=== PATIENT | female | born 1945 | race Hispanic/Latino ===

== ENCOUNTER 2017-08-18 06:00 | Day surgery (SDC) | payer OTHER ==
[~2017-08-18] VITALS: Ht 157.5 cm; Wt 55.5 kg
[~2017-08-18 06:00] MED LIST: ASPI-1012 PO; LISI-613 PO; SODIUM CHLORIDE 0.9% 1000ML 1,000 ML IV ONE
[2017-08-18 06:50] VITALS: BP 140/67
[2017-08-18] MEDS ORDERED: LIDOCAINE HCL 1% 20 ML VIAL ONE (07:32)
[2017-08-18] MEDS ORDERED: PROPOFOL 1000 MG/100 ML 100 ML IV ONE (07:33)
[2017-08-18 07:55] VITALS: BP 85/35
== END 2017-08-18 08:25 | disposition home or self-care (01) ==
LOC: DAH 06:00 → ENDO 06:00
PROVIDERS: ATTEND Internal Medicine Gastroenterology
DX: K56.699 Other intestinal obstruction unspecified as to partial versus complete obstruction (principal); I10 Essential (primary) hypertension; E78.5 Hyperlipidemia, unspecified; I25.10 Atherosclerotic heart disease of native coronary artery without angina pectoris; D64.9 Anemia, unspecified; Z86.73 Personal history of transient ischemic attack (TIA), and cerebral infarction without residual deficits; Z82.49 Family history of ischemic heart disease and other diseases of the circulatory system; Z88.8 Allergy status to other drugs, medicaments and biological substances; Z88.0 Allergy status to penicillin; Z79.899 Other long term (current) drug therapy; Z79.82 Long term (current) use of aspirin
CPT/HCPCS: 45380; 88305; 88313; 93005; A4606; J2704; J7030